=== PATIENT | female | born 2000 | race Caucasian/White ===

== ENCOUNTER 2019-07-30 17:29 | Observation (INO) | payer OTHER ==
[~2019-07-30] VITALS: Ht 157.5 cm; Wt 86.6 kg
[2019-07-31] MEDS ORDERED: LABETALOL 100 MG TAB PO SCH (15:00)
[2019-07-31] MEDS ORDERED: LABETALOL 100 MG TAB ONE (15:04)
== END 2019-07-31 17:47 | disposition home or self-care (01) ==
LOC: MLD 17:29 → MFCC 19:56
PROVIDERS: ADMIT Obstetrics & Gynecology; ATTEND Obstetrics & Gynecology
DX: O13.3 Gestational [pregnancy-induced] hypertension without significant proteinuria, third trimester (principal); Z3A.38 38 weeks gestation of pregnancy
CPT/HCPCS: 76815; G0378; Q0092

== ENCOUNTER 2019-08-03 18:11 | Inpatient (IN) | payer OTHER ==
[~2019-08-03] VITALS: Ht 160 cm; Wt 86.6 kg
[2019-08-03] MEDS ORDERED: METHYLERGONOVINE 0.2 MG/ML AMP IM PRN (18:45)
[2019-08-03] MEDS ORDERED: MISOPROSTOL 25 MCG TAB VG ONE (18:45)
[2019-08-03] MEDS ORDERED: CARBOPROST 250 MCG/ML AMP IM PRN (18:45)
[2019-08-03] MEDS ORDERED: MISOPROSTOL 25 MCG TAB VG SCH (18:48)
[2019-08-03 19:54] LABS: BASOPHILS % (AUTO) 0.4 % (0.0-2.0); EOSINOPHILS % (AUTO) 0.4 % (0.0-4.0); HEMATOCRIT 32.9 % (36-48); HEMOGLOBIN 10.9 g/dL (12.0-16.0); LYMPHOCYTES # (AUTO) 1.9 K/uL (2.5-16.5); LYMPHOCYTES % (AUTO) 23.9 % (20.5-51.1); MEAN CORPUSCULAR HEMOGLOBIN 28 pg (27-31); MEAN CORPUSCULAR HGB CONC 33 g/dL (33-37); MEAN CORPUSCULAR VOLUME 83.5 fL (80-94); MONOCYTES # (AUTO) 0.4 K/uL (0.8-1.0); MONOCYTES % (AUTO) 4.9 % (1.7-9.3); NEUTROPHILS # (AUTO) 5.5 K/uL (1.8-7.7); NEUTROPHILS % (AUTO) 70.4 % (42.2-75.2); PLATELET COUNT (AUTO) 241 K/uL (140-450); RED BLOOD CELL COUNT(AUTO) 3.94 MIL/uL (4.20-5.40); WHITE BLOOD COUNT (AUTO) 7.8 K/uL (4.8-10.8)
[2019-08-03] MEDS: LACTATED RINGERS 1,000 ML IV SCH (19:55)
[2019-08-03 19:58] LABS: APPEARANCE,URINE HAZY (CLEAR); BILIRUBIN,URINE NEGATIVE (NEGATIVE); BLOOD, URINE NEGATIVE (NEGATIVE); COLOR,URINE YELLOW (YELLOW); LEUKOCYTE ESTERASE ,URINE NEGATIVE (NEGATIVE); NITRITE, URINE NEGATIVE (NEGATIVE); UGLUCOSE NEGATIVE (NEGATIVE)
[2019-08-03] MEDS: LABETALOL 100 MG TAB PO SCH (23:56)
[2019-08-04] MEDS ORDERED: OXYTOCIN 20 UNITS/LR PREMIX 1,000 ML IV SCH ×2 (01:35→19:22)
[2019-08-04] MEDS: LACTATED RINGERS 1,000 ML IV SCH (06:26)
[2019-08-04] MEDS ORDERED: ROPIVACAINE 0.2%/NS PREMIX 200 ML EPI ONE (07:22)
[2019-08-04] MEDS ORDERED: ROPIVACAINE 0.2%/NS PREMIX 100 ML EPI SCH (07:50)
[2019-08-04] MEDS: LABETALOL 100 MG TAB PO SCH ×2 (08:47→15:36)
--- NOTE | 2019-08-04 09:23 | NUR ---
PATIENT HAS BEEN SCREENED AND CATEGORIZED LOW NUTRITION RISK. PATIENT WILL BE SEEN WITHIN 7 DAYS OF ADMISSION. 08/10/[address]
[2019-08-04] MEDS ORDERED: OXYTOCIN 10 UNITS/ML VIAL ONE (13:37)
[2019-08-04] MEDS ORDERED: LABETALOL 100 MG/20 ML VIAL ONE (14:32)
[2019-08-04] MEDS ORDERED: LIDOCAINE 1% 500 MG/50 ML VIAL ONE (14:59)
[2019-08-04] MEDS ORDERED: IBUPROFEN 600 MG TAB PO PRN (19:25)
[2019-08-04] MEDS ORDERED: MEASLES, MUMPS, AND RUBELLA 1 VIAL SQVAC PRN (19:25)
[2019-08-04] MEDS ORDERED: ACETAMINOPHEN 325 MG TAB PO PRN (19:25)
[2019-08-04] MEDS ORDERED: LABETALOL 100 MG TAB PO ONE (21:00)
[2019-08-05 08:37] LABS: BASOPHILS % (AUTO) 0.5 % (0.0-2.0); EOSINOPHILS % (AUTO) 0.4 % (0.0-4.0); HEMATOCRIT 32.3 % (36-48); HEMOGLOBIN 10.6 g/dL (12.0-16.0); LYMPHOCYTES # (AUTO) 2.3 K/uL (2.5-16.5); LYMPHOCYTES % (AUTO) 22.9 % (20.5-51.1); MEAN CORPUSCULAR HEMOGLOBIN 28 pg (27-31); MEAN CORPUSCULAR HGB CONC 33 g/dL (33-37); MEAN CORPUSCULAR VOLUME 84.6 fL (80-94); MONOCYTES # (AUTO) 0.7 K/uL (0.8-1.0); MONOCYTES % (AUTO) 6.8 % (1.7-9.3); NEUTROPHILS # (AUTO) 6.8 K/uL (1.8-7.7); NEUTROPHILS % (AUTO) 69.4 % (42.2-75.2); PLATELET COUNT (AUTO) 217 K/uL (140-450); RED BLOOD CELL COUNT(AUTO) 3.82 MIL/uL (4.20-5.40); RED CELL DISTRIBUTION WIDTH 14.2 % (11.6-13.7); WHITE BLOOD COUNT (AUTO) 9.8 K/uL (4.8-10.8)
[2019-08-05] MEDS: LABETALOL 200 MG TAB PO SCH ×2 (09:18→21:22)
[2019-08-05] MEDS: BISACODYL 5 MG TABEC PO PRN (12:18)
[2019-08-05] MEDS: DOCUSATE SODIUM 100 MG GELCAP PO PRN (12:18)
[2019-08-05] MEDS ORDERED: FERR325E14 PO (17:58)
[2019-08-05] MEDS ORDERED: ACET-9800 PO (18:00)
[2019-08-06] MEDS: LABETALOL 200 MG TAB PO SCH (09:24)
[2019-08-06] MEDS: DOCUSATE SODIUM 100 MG GELCAP PO PRN (09:24)
[2019-08-06] MEDS: BISACODYL 5 MG TABEC PO PRN (09:24)
[2019-08-06] MEDS ORDERED: TRA200 PO (16:23)
== END 2019-08-06 17:50 | disposition home or self-care (01) | DRG 560 ==
LOC: MLD 18:11 → MFCC 08-04 21:22
PROVIDERS: ADMIT Obstetrics & Gynecology; ATTEND Obstetrics & Gynecology
PROC: 10E0XZZ Delivery of Products of Conception, External Approach (ICD-10-PCS; principal; 2019-08-04)
PROC: 10907ZC Drainage of Amniotic Fluid, Therapeutic from Products of Conception, Via Natural or Artificial Opening (ICD-10-PCS; 2019-08-04)
PROC: 3E0R3BZ Introduction of Anesthetic Agent into Spinal Canal, Percutaneous Approach (ICD-10-PCS; 2019-08-04)
PROC: 00HU33Z Insertion of Infusion Device into Spinal Canal, Percutaneous Approach (ICD-10-PCS; 2019-08-04)
PROC: 3E0P7VZ Introduction of Hormone into Female Reproductive, Via Natural or Artificial Opening (ICD-10-PCS; 2019-08-04)
PROC: 3E0234Z Introduction of Serum, Toxoid and Vaccine into Muscle, Percutaneous Approach (ICD-10-PCS; 2019-08-04)
PROC: 3E0134Z Introduction of Serum, Toxoid and Vaccine into Subcutaneous Tissue, Percutaneous Approach (ICD-10-PCS; 2019-08-04)
DX: O70.0 First degree perineal laceration during delivery (principal); Z23 Encounter for immunization; Z37.0 Single live birth; Z3A.39 39 weeks gestation of pregnancy
CPT/HCPCS: 36415; 59200; 59409; 81003; 85025; 86592; 86886; 86900; 86901; 90715; J2001; J2590; J2795; J3490; J7120